=== PATIENT | male | born 1965 | race Caucasian/White ===

== ENCOUNTER 2023-07-24 22:44 | Emergency (ER) | payer MEDICARE ==
[~2023-07-24] VITALS: Ht 180.3 cm; Wt 99.0 kg
--- OUTSIDE RECORDS SUMMARY | 2023-07-24 22:51 | XMS ---
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 Richard has no Care Guidelines for this patient. Cameron VISIT COUNT (12 MO.) 2 [facility] TOTAL 2 NOTE: Visits indicate total known visits. ED/C VISIT TRACKING (12 MO.) 07/24/2023 22:[address] [facility] [place] TYPE: Emergency COMPLAINT: - SOB 07/24/2023 04:25 [facility] TYPE: Emergency COMPLAINT: - ABD PAIN INPATIENT VISIT TRACKING (12 MO.) No inpatient visits to display in this time frame [id number]
[2023-07-24] MEDS ORDERED: ALBUTEROL SULFATE 8 GM HOME.PACK INH ONE (23:30)
[2023-07-24] MEDS ORDERED: AZITHROMYCIN 250 MG HOME.PACK PO ONE (23:30)
[2023-07-24] MEDS ORDERED: INHALER, ASSIST DEVICES 1 EACH SPACER MISC ONE (23:30)
[2023-07-24] MEDS ORDERED: AZITHROMYCIN 250 MG TAB PO ONE (23:30)
[2023-07-24 23:48] VITALS: BP 109/56
== END 2023-07-24 23:59 | disposition home or self-care (01) ==
LOC: ED 22:44
DX: J20.9 Acute bronchitis, unspecified (principal)